=== PATIENT | female | born 1960 ===

== ENCOUNTER 2016-09-01 16:15 | Emergency (ER) | payer OTHER ==
[2016-09-01] MEDS ORDERED: DIPH,PERTUSS(ACELL),TET VAC/PF 0.5 ML DISP.SYRIN IM ONE (17:54)
[2016-09-01 18:05] VITALS: BP 136/79
== END 2016-09-01 18:03 ==
LOC: ED 16:15
DX: Z77.21 Contact with and (suspected) exposure to potentially hazardous body fluids (principal)
CPT/HCPCS: 90715; 99283